=== PATIENT | male | born 1955 | race Hispanic/Latino ===

== ENCOUNTER 2019-01-09 10:50 | Inpatient (IN) | payer BC, OTHER ==
--- NOTE | 2019-01-09 11:06 | CT ---
Exam: CT brain PROVIDED CLINICAL HISTORY: Stroke alert, facial weakness COMPARISON: None FINDINGS: The ventricular system is normal in size and morphology. No evidence for intracranial hemorrhage or mass effect. The extracranial soft tissues and osseous structures demonstrate no evidence for an acute abnormality. Osseous excrescence arising from the left aspect of the sella and partially surrou nding the expected course of the left supraclinoid internal carotid artery, benign-appearing. IMPRESSION: No evidence for intracranial hemorrhage or mass effect. Findings discussed with the referring clinici an 11:04 AM 01/09/2019.
[2019-01-09 11:13] LABS: #Eosinphils 0.2 thou/uL (0.0-0.7); #Lymphocytes 2.6 thou/uL (1.20-3.40); #Monocytes 0.7 thou/uL (0.11-0.59); #Neutrophils 4.3 thou/uL (1.40-6.50); %Basophils 0.6 % (0.0-1.0); %Lymphocytes 33.1 % (21.0-51.0); %Neutrophils 55.3 % (42.0-75.0); Hemoglobin 14.8 g/dL (14.0-18.0); Mean Corpuscular HGB CONC 32.4 g/dL (32.0-36.0); Mean Corpuscular Hemoglobin 30.3 pg (27.0-31.0); Mean Corpuscular Volume 93.5 fL (78.0-98.0); Mean Platelet Volume 8.9 fL (7.4-10.4); Platelet Count 237 thou/uL (130-400); RBC Distribution Width 11.8 % (11.5-14.5); White Blood Cell (WBC) Count 7.7 thou/uL (4.8-10.8)
[2019-01-09 11:19] LABS: PTT 29.3 SEC (22.9-36.1); Prothrombin Time 12.6 SEC (12.0-14.7)
[2019-01-09 11:37] LABS: Bilirubin Negative (Negative); Blood, Urine Negative (Negative); Clarity Clear (Clear); Glucose, Urine (Dipstick) 70 mg/dL (Negative); Leukocyte Negative Leu/uL (Negative); Nitrite Negative (Negative); Protein, Urine (Dipstick) Negative (Neg-Trace); Urobilinogen Normal mg/dL (Less than 2)
[2019-01-09 11:42] LABS: ALT (SGPT) 22 U/L (8-55); AST (SGOT) 16 U/L (5-34); Albumin 4.3 g/dL (3.4-4.8); Alkaline Phosphatase 99 U/L (40-150); Anion Gap 14 mmol/L (10-20); BUN (Urea Nitrogen) 10 mg/dL (8.4-25.7); Bilirubin, Total 0.7 mg/dL (0.2-1.2); Calc. Creatinine Clearance 0 mL/min (70-130); Calcium 9.4 mg/dL (7.8-10.44); Carbon Dioxide 23 mmol/L (23-31); Chloride 105 mmol/L (98-107); Estimated GFR-MDRD Greater than 90; Globulin 2.8 g/dL (2.4-3.5); Glucose 211 mg/dL (80-115); Potassium 4.1 mmol/L (3.5-5.1); Protein, Total 7.1 g/dL (5.8-8.1); Sodium 138 mmol/L (136-145)
--- NOTE | 2019-01-09 11:43 | CT ---
EXAM: CT angiogram brain with IV contrast and three-dimensional reconstructions CT angiogram great vessels neck contrast and 3-D reconstructions PROVIDED CLINICAL HISTORY: History COMPARISON: None FINDINGS: There is a normal three-vessel configuration of the great vessels at the arch. The common carotid, internal carotid, clavian and vertebral arteries demonstrate no evidence for sign ificant stenosis. The left vertebral artery is dominant. The right vertebral artery terminates in PICA. There is no evidence for focal vessel stenosis or branch occlusion involving the intracranial circula tion. There is circumferential calcification about the supraclinoid left internal carotid artery and carotid terminus as well as the proximal aspects of the left A1 segment. These vessels appear nor jay jay opacified. There is a 2-3 mm saccular focus of contrast emanating from the left posterolateral aspect of the carotid terminus that may reflect a small saccular aneurysm or atheromat ous ulcer. IMPRESSION: 1. No significant stenosis involving great vessels neck. 2. No significant stenosis/occlusion involving intracranial circulation. 3. Atheromatous ulcer versus small saccular aneurysm involving left carotid terminus as above. Findings discussed with the referring clinician 11:39 AM 01/09/2019.
[2019-01-09] MEDS ORDERED: Aspirin Chewable 81 MG TAB ONE (12:49)
[2019-01-09] MEDS ORDERED: ISOVUE-370 76%-LOCM 1 ML ONE (13:36)
[2019-01-09 14:50] LABS: Troponin I Less than 0.010 ng/mL (< 0.028)
--- NOTE | 2019-01-09 16:15 | ULT ---
VENOUS DOPPLER ULTRASOUND OF THE RIGHT LOWER EXTREMITY: 01/09/19 HISTORY: Right lower extremity pain. TECHNIQUE: Brown scale, with color flow and spectral Doppler imaging of the deep venous system of the right lower extremity is performed. FINDINGS: There is good flow, compression, and augmentation noted in the right common femoral, femoral, deep fe moral, popliteal, posterior tibial, peroneal and greater saphenous veins. IMPRESSION: No evidence of DVT in the right lower extremity. POS: [facility]
--- NOTE | 2019-01-09 16:17 | ULT ---
CAROTID DUPLEX ULTRASOUND: 01/09/19 INDICATION: History of stroke. FINDINGS: There is mild intimal thickening of the common carotid arteries and internal carotid arteries bilater ally. Peak systolic velocity within the right ICA was 88.3 cm/s and the left ICA 93.7 cm/s. Peak systolic velocity within the right CCA was 108.2 cm/s and the left CCA 107.0 cm/s. The right IC/CC ratio is 0.82 and left is 0.88. Antegrade flow is seen in both vertebral arteries. IMPRESSION: No hemodynamically significant stenosis demonstrated. POS: [facility]
[2019-01-09 16:55] VITALS: BMI 27.2
[2019-01-09] MEDS ORDERED: Dextrose 50% Abboject 50 ML SYRINGE IVP PRN (17:38)
[2019-01-09] MEDS ORDERED: Dextrose 5% in Water 1,000 ML IV PRN (17:38)
[2019-01-09] MEDS: Insulin Regular 300 UNITS/3 ML VIAL SC PRN ×2 (18:48→20:58)
[2019-01-09] MEDS: Atorvastatin Calcium 20 MG TAB PO SCH (20:58)
--- NOTE | 2019-01-09 21:18 | HP ---
CHIEF COMPLAINT: Slurred speech and facial droop. HISTORY OF PRESENT ILLNESS: Mr. Macias is a 63-year-old male with past medical history of diabetes, hypertension, was noted to have speech problems while going to the office this morning. He tried to talk to his brother on the phone and he could not speak well. Words could not come out. Later, he called his also and he could not talk, so the patient was brought to the emergency room with sudden onset of dysarthria. By the time, he came to the ER, the patient's symptoms got resolved in few minutes and he was able to speak clearly. The nurse also noticed some facial droop when he came to the emergency room. In the ER, the patient was evaluated, was found to have slurred speech, and later some slight right-sided facial droop, which improved. Later on after few more minutes, the patient developed symptoms again. He had a problem speaking again. He could not speak. He could not get the words out, so the ER physician in this setting gave him tPA with possible stroke and he did have CT scan of the brain, which was negative for any bleeding or infarct. CTA angio of the neck and [place] was done as well. Currently, the patient is unable to speak. He is getting tPA. He did not have any chest pain. No nausea or vomiting. No shortness of breath. No headache. No dizziness. He did have problem with right leg, some pain, but no swelling. He was supposed to have a DVT study done on the right leg, which was still not done as an outpatient. PAST MEDICAL HISTORY: 1. Hypertension. 2. Diabetes mellitus. 3. Hyperlipidemia. PAST SURGICAL HISTORY: Nothing significant. CURRENT MEDICATIONS: The patient is on: 1. Metformin 500 mg b.i.d. 2. Amlodipine 10 mg daily. 3. Glimepiride 4 mg daily. FAMILY HISTORY AND SOCIAL HISTORY: The patient lives with family. No history of smoking. REVIEW OF SYSTEMS: CARDIOVASCULAR: No chest pain or shortness of breath. RESPIRATORY: No fever or cough. GASTROINTESTINAL: No nausea or vomiting. No abdominal pain. CENTRAL NERVOUS SYSTEM: The patient has slurred speech, but no other weaknesses. PHYSICAL EXAMINATION: GENERAL: The patient is alert, awake, oriented x3. VITAL SIGNS: Temperature 98, pulse 60, respirations 20, blood pressure 160/60. HEENT: Head is normocephalic, atraumatic. Pupils are equal and reactive. Nasopharynx is pale and dry. Hard and soft palate. No lesions. SKIN: Turgor decreased. NECK: Supple. No JVD. LUNGS: Bilateral air entry with no rales and no rhonchi. HEART: S1 and S2. Regular. ABDOMEN: Soft. No distention. No tenderness. Normal bowel sounds present. RECTAL: Deferred. CENTRAL NERVOUS SYSTEM: The patient is alert, awake, oriented x3. Motor system, there is expressive aphasia. Otherwise, power is 5/5 in all extremities. Deep tendon reflex 2+ bilaterally. Plantars downgoing. Sensory intact. LABORATORY DATA: CBC shows WBC 7.7, hemoglobin 14, hematocrit 45, platelets 237. Metabolic panel; sodium 138, potassium 4, chloride 104, CO2 of 23, blood urea nitrogen 10, creatinine 0.9, glucose 211. Prothrombin time 12, INR 1. Urinalysis negative. CT of the brain; no evidence of bleeding, no infarct. CTA of the [place] and neck showed no significant stenosis involving the great vessels of the neck, there is atheromatous ulcer versus small saccular aneurysm involving left carotid terminus. EKG showed normal sinus rhythm, no acute ST-T changes seen. ASSESSMENT: 1. Acute cerebrovascular accident with expressive aphasia. 2. Diabetes mellitus. 3. Hypertension. 4. Possible atheromatous ulcer versus saccular aneurysm in carotid sinus on the left. 5. Hyperlipidemia. PLAN: 1. Vital signs q.4 hours. 2. Activity as tolerated. 3. Allergies, NKDA. 4. Hep-Lock. 5. Continue home medications. 6. Accu-Chek a.c. and at bedtime, sliding scale mild with regular insulin. 7. Neurology consult. 8. We will obtain carotid Dopplers today. 9. Echocardiogram. 10. DVT study. Job ID: [id number]
[2019-01-10 06:03] LABS: Cardiac Risk 2.7 (Less than 4.5)
[2019-01-10] MEDS ORDERED: metFORMIN 500 MG TAB PO SCH (08:00)
[2019-01-10] MEDS: Amlodipine 10 MG TAB PO SCH (09:17)
[2019-01-10] MEDS: Glimepiride 4 MG TAB PO SCH (09:17)
[2019-01-10] MEDS ORDERED: Aspirin 81 mg Enteric Coated Tablet PO SCH (10:45)
--- NOTE | 2019-01-10 11:06 | CON ---
DATE OF CONSULTATION: 01/10/2019 SERVICE: Pulmonary Medicine. REASON FOR CONSULTATION: ICU patient. HISTORY OF PRESENT ILLNESS: The patient is a 63-year-old male with past medical history significant for essentially nothing. He is in good health. That being said, he had an abrupt onset of difficulty getting words out. Interestingly, he had no difficulties in singing along with a song. That being said, after making an attempt to have multiple conversations with different people, he ultimately came to the emergency department. He was given tPA. His NIH abruptly improved. He was tucked in the ICU for monitoring. This morning, he has no neurologic deficits. Denies any current fevers, chills, nausea, or vomiting. There were no precipitating events that surround these changes. The patient is doing fine from respiratory standpoint. PAST MEDICAL HISTORY: 1. History of CVA. 2. Type 2 diabetes mellitus. 3. Hypertension. 4. Dyslipidemia. PAST SURGICAL HISTORY: None. FAMILY HISTORY: Noncontributory. SOCIAL HISTORY: Negative for significant alcohol, tobacco, or illicit drug use. He has no exposure to chemicals, dust, asbestos, or tuberculosis. ALLERGIES: NO KNOWN DRUG ALLERGIES. MEDICATIONS: List of his inpatient medications was reviewed. No specific updates were made at this time. REVIEW OF SYSTEMS: General, head, ears, eyes, nose, throat, cardiovascular, respiratory, GI, , musculoskeletal, neurologic, and skin are negative except as mentioned in the HPI. PHYSICAL EXAMINATION: VITAL SIGNS: Afebrile, pulse 66, blood pressure 127/77, respirations 14, saturation 94% on room air. GENERAL: The patient is awake and alert, in no apparent distress. LUNGS: Excellent air entry with no prolonged expiratory phase, wheezing, crackles, or rhonchi. HEART: Normal rate and regular. ABDOMEN: Soft, nontender, nondistended. Bowel sounds are positive. MUSCULOSKELETAL: No cyanosis or clubbing. No pitting in the bilateral lower extremities. NEUROLOGIC: Grossly nonfocal. He demonstrates good strength throughout. He has no difficulties with his speech. Sensation is normal everywhere except for the right lower extremity where he has had a recent history of sciatic nerve discomfort. LABORATORY DATA: CBC, INR, comprehensive metabolic profile are all unremarkable. Troponin is negative x2. Hemoglobin A1c 8.0. IMAGING STUDIES: 1. CT of the brain demonstrates no acute intracranial abnormality. 2. CT [place] with contrast demonstrates no significant stenosis involving the big vessels. There is an atheromatous ulcer versus saccular aneurysm involving the left carotid terminus. 3. Ultrasound of the bilateral lower extremities demonstrates no acute abnormality. 4. Ultrasound of the neck demonstrates no flow-limiting lesions. ASSESSMENT: 1. Acute cerebrovascular accident, status post tPA with resolution of neurologic dysfunction. 2. Hypertension. 3. Type 2 diabetes mellitus. 4. Saccular plaque versus aneurysm of the carotid artery. DISCUSSION AND PLAN: Agree with Neurology consultation. The patient may require intervention there. He had an echocardiogram this morning which is currently pending. At this point, he is stable for transition out of the ICU to the medical unit. We will continue anti-platelet therapy. He has no further requirements for Inpatient Pulmonary Critical Care opinion, so when he leaves the ICU, I will sign off. Please call with additional questions or concerns through time. 70 minutes have been devoted to this patient in various activities. I personally reviewed all imaging studies and laboratory data noted within this document. For fifty percent of this time, I was interacting with the patient at the bedside or coordinating care with the care team. For the remainder of the time I was immediately available to the patient in the hospital unit. Job ID: [id number] MTDD
[2019-01-10] MEDS: Insulin Regular 300 UNITS/3 ML VIAL SC PRN (12:27)
[2019-01-10] MEDS: Atorvastatin Calcium 20 MG TAB PO SCH (21:11)
--- NOTE | 2019-01-10 22:11 | CON ---
DATE OF CONSULTATION: 01/10/2019 CHIEF COMPLAINT: Possible transient ischemic attack. HISTORY OF PRESENT ILLNESS: The patient is a 63-year-old man, who was driving to work. He could not talk, but he could sing briefly, but then he could not talk again. His symptoms fluctuated. He was talking to his [id number] and then he talked to his . He did not have any weakness of his extremities. He never had similar symptoms. Upon arrival to the ER, he was diagnosed with a stroke and received IV tPA. Subsequent to IV tPA, he no longer had any of these symptoms. Since he has no sensory abnormality overall, it seems like he is back to baseline at this time. PREVIOUS MEDICAL HISTORY: Positive for hypertension, diabetes, and hyperlipidemia,. PREVIOUS SURGICAL HISTORY: Had bilateral rotator cuff repair, surgery of his knees, bilateral deep tendon repairs in his ankle. He reported these were all sports related, he plays [employer], he was a catcher. SOCIAL HISTORY: He is a nonsmoker. Does not drink alcohol. 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 FAMILY HISTORY: Mother from CV[place]. Father from [place]. Everyone in his family has diabetes. His sister also had a CVA. He has 2 children, both are healthy. ALLERGIES: NO KNOWN DRUG ALLERGIES. REVIEW OF SYSTEMS: GENERAL: Normal. CARDIOVASCULAR: Negative for chest pain or palpitation. PULMONARY: Negative for any cough or shortness of breath. GI: Negative for any nausea, vomiting, or diarrhea. HEMATOLOGIC: Negative for bleeding, diathesis or anemia. NEUROLOGICAL: Positive for transient aphasia, which resolved. LABORATORY DATA: His lab workup; white count 7.7, hemoglobin 14.8, hematocrit 45.8, platelets 237. Chemistry; sodium 138, potassium 4.1, chloride 105, bicarb 23, BUN 10, creatinine 0.8, glucose 211. His lipid profile was within normal limits. He had CT angiography of his [place], which showed no evidence of any stenosis in the great vessels of the neck or intracranial circulation. He does have atheromatous ulcer versus small saccular aneurysm in the left carotid terminus and MRI is pending. CT angiography showed no evidence of any acute stroke or internal hemorrhage. PHYSICAL EXAMINATION: VITAL SIGNS: Temperature 98, pulse 68, blood pressure 139/75, O2 saturation is 95%. GENERAL APPEARANCE: Well-built, well-nourished man, who appears comfortable. CHEST: Clear vesicular breathing. CARDIOVASCULAR: S1 and S2 heard. No murmurs. ABDOMEN: Soft. No organomegaly noted. NEUROLOGICAL: Higher intellectual functions; normal orientation to time, place, and person and appropriate conversation. Cranial nerves, normal extraocular movements. Pupils 2 mm, reactive to light bilaterally and normal sensation of face bilaterally. Tongue midline. No atrophy noted. Normal elevation of palate. Normal hearing to finger rub bilaterally. Motor exam; bulk normal. Tone normal. Strength 5/5 in upper and lower extremities in iliopsoas, hamstrings, quadriceps, ankle dorsiflexion, plantar flexion, deltoid, biceps, triceps, wrist extension and flexion, finger extension and flexion bilaterally. Sensory normal touch bilaterally and cerebellar normal [id number]. IMPRESSION: The patient is a 63-year-old man with risk factors of hypertension, diabetes, hyperlipidemia. He had a sudden onset of aphasia while driving today without any limb involvement. He has pending MRI of the brain at this time. However, his CT angiography showed ulceration or saccular aneurysm of the carotid. At this time, his neurological examination is normal. RECOMMENDATIONS: Please consult Vascular Surgery to see if this needs a stent. I will review his MRI and echocardiogram. Continue aspirin with statin for now for stroke prophylaxis. Job ID: [id number]
[2019-01-11] MEDS: Glimepiride 4 MG TAB PO SCH (08:18)
[2019-01-11] MEDS: Amlodipine 10 MG TAB PO SCH (08:19)
[2019-01-11] MEDS ORDERED: Aspirin 81 mg Enteric Coated Tablet PO SCH (09:00)
--- NOTE | 2019-01-11 11:15 | CON ---
DATE OF CONSULTATION: HISTORY OF PRESENT ILLNESS: This is a pleasant 63-year-old gentleman in good health with a diagnosis of diabetes mellitus and hypertension, who had an episode of aphasia that prompted visit to the ER, ultimately receiving tPA with resolution of his symptoms. Workup has included a normal cardiac echo, normal carotid ultrasound, CT angiogram showing some calcification of the distal intracranial ICA on the left with perhaps a small ulcerated plaque or 2 mm aneurysm yet clearly defined. MRI is pending. The patient was taking 81 mg aspirin a day at home prior to this. He does have a family history of stroke. REVIEW OF SYSTEMS: The patient has had some discomfort in his right leg over the lateral aspect below the knee, worsened when he was trying to play tennis and associated with some lower back pain. This has been unrelated to his current symptom. PHYSICAL EXAMINATION: GENERAL: On examination, he is alert and cooperative gentleman, in no distress. NECK: No carotid bruits. LUNGS: Clear to auscultation. CARDIAC: Regular rate and rhythm. No murmurs. EXTREMITIES: He has no peripheral edema with palpable radial and dorsalis pedis pulses bilaterally. NEUROLOGIC: Motor strength equal in all extremities with no residual aphasia. ASSESSMENT AND PLAN: At this time, the patient has intracranial disease, first episode on the single antiplatelet agent. Assuming the MRI shows nothing additional, I would suggest dual antiplatelet therapy with aspirin and Plavix and follow up with Dr. Subhash German as to whether further intervention would be appropriate at this stage, including any further diagnostic angiography. Job ID: [id number]
--- NOTE | 2019-01-11 11:28 | MRI ---
MRI OF THE BRAIN WITHOUT AND WITH CONTRAST: COMPARISON: None. HISTORY: Patient was unable to speak on Saturday01/09/2019. This has resolved. Evaluate for stroke. TECHNIQUE: Multiplanar, multisequence MRI images were obtained of the brain without and with IV contrast. FINDINGS: There are scattered foci of high T2/FLAIR signal in the subcortical and periventricular white matter, likely secondary to small-vessel ischemic disease. No restricted diffusion is seen to suggest an ac [place] infarction. No abnormal enhancement is seen. There is no evidence of hydrocephalus, intracranial hemorrhage, or extraaxial fluid collection. The expected flow voids are present. The corpus callosum, pituitary, and craniocervical junction are unr emarkable. The calvarium and overlying soft tissues are unremarkable. The visualized paranasal sinuses and mast oid air cells are well aerated. IMPRESSION: 1. No evidence of acute intracranial abnormality. 2. Small-vessel ischemic disease. POS: [facility]
[2019-01-11 11:51] VITALS: BP 146/75; TEMP 97.5
[2019-01-11] MEDS: Insulin Regular 300 UNITS/3 ML VIAL SC PRN (12:15)
--- NOTE | 2019-01-11 12:18 | PRG ---
DATE OF SERVICE: 01/11/2019 CHIEF COMPLAINT: TIA. INTERVAL HISTORY: The patient has been stable. He received tPA for aphasia and presumed left MCA CVA. He has been improving steadily. At this time, his current workup shows left ICA abnormality, which needs to be evaluated by Vascular Surgery. The patient is stable. LABORATORY DATA: No new lab today and glucose is still elevated at 229. PHYSICAL EXAMINATION: VITAL SIGNS: Blood pressure 146/75, temperature 97.5, pulse is 62, respiratory rate 16. GENERAL APPEARANCE: Well-built, well-nourished man, who is comfortable and extraocular movements are normal. NEUROLOGIC: Motor examination; bulk normal, tone normal. Strength 5/5 bilaterally in both upper and lower extremities. Gait not tested. Coordination is normal. IMPRESSION: The patient is a 63-year-old man with diabetes, who presented to the emergency room with aphasia. Initially, he had aphasia and mild weakness of the left arm and his symptoms have resolved. He received IV tPA as well in the process. At this time, most of his workup is negative, except for ulceration or saccular aneurysm of the carotid artery, mainly on the left carotid terminus. His MRI of the brain is negative for an acute infarct and his echocardiogram is also within normal limits. Clinical examination is stable and his exam today is normal. He is awaiting on Vascular Surgery consultation. If there is no interventional procedure planned, please discharge him home on aspirin with statin, and follow up with Dr. Goss as outpatient. Also follow recommendations from Dr. Yen, Vascular Surgery. Please call me if you have any further questions. Job ID: [id number]
--- NOTE | 2019-01-12 14:55 | DIS ---
DATE OF ADMISSION: 01/09/2019 DATE OF DISCHARGE: 01/11/2019 ADMITTING DIAGNOSES: 1. Slurred speech and aphasia, possible cerebrovascular accident versus transient ischemic attack. 2. Diabetes mellitus. 3. Hypertension. 4. Hyperlipidemia. FINAL DIAGNOSES: 1. Acute cerebrovascular accident with expressive aphasia, status post tPA, improved. 2. Possible atheromatous ulcer versus saccular aneurysm in carotid sinus on the left. 3. Diabetes mellitus. 4. Hypertension. 5. Hyperlipidemia. BRIEF SUMMARY OF HOSPITAL COURSE: Mr. Gilberto Cowart is a 63-year-old male admitted because of sudden onset of expressive aphasia. The patient could not bring any words, could not speak and able to understand. No other extremity weakness. The patient initially improved and developed symptoms again. He was given tPA in the ER. After a few hours later, the patient's speech returned almost to the normal. He was admitted to rule out CVA. Carotid Doppler study was done and it did not show any hemodynamically significant stenosis. MRI of the brain was done, it was unremarkable. Echocardiogram showed normal LV function with ejection fraction of 65%. The patient was seen by Dr. Hsieh in the ICU, felt he has acute CVA which is resolved. He is also seen by neurologist, Dr. Mccain, she felt the patient possibly has TIA which resolved, suggested vascular surgery consult regarding that saccular aneurysm versus atheromatous ulcer in the carotid sinus. The patient was seen by Dr. Yen, he felt the patient has possible 2 mm size atheromatous ulcer in the sinus, suggested no intervention by Vascular Surgery. He may follow up with Neurosurgery regarding this as an outpatient. In view of improvement of the patient's symptoms, the patient is being discharged. At the time of discharge, he was stable. His vital signs stable. Lungs, clear to auscultation. Abdomen soft, nontender. Bowel sounds present. DISCHARGE MEDICATIONS: 1. Vitamin D daily. 2. Glimepiride 4 mg daily. 3. Metformin 500 b.i.d. 4. Amlodipine 10 mg daily. 5. Aspirin 81 mg two tablets daily. 6. Atorvastatin 20 mg daily. 7. Plavix 75 mg daily. FOLLOWUP: The patient will come for followup in 2 weeks. Job ID: [id number]
== END 2019-01-11 16:47 | disposition home or self-care (01) | DRG 93 ==
LOC: ERS 10:50 → CCU 16:13 → 2SE 01-10 10:34
PROVIDERS: ADMIT Internal Medicine; ATTEND Internal Medicine
DX: I67.1 Cerebral aneurysm, nonruptured (principal); I10 Essential (primary) hypertension; E11.9 Type 2 diabetes mellitus without complications; R29.810 Facial weakness; R47.81 Slurred speech; E78.5 Hyperlipidemia, unspecified; R29.706 NIHSS score 6; Z79.84 Long term (current) use of oral hypoglycemic drugs; Z79.899 Other long term (current) drug therapy
CPT/HCPCS: 36416; 70450; 70496; 70498; 70553; 80053; 80061; 81003; 83036; 84484; 85025; 85610; 85730; 93005; 93306; 93880; 96361; 96365; 96376; J1815; J2997; Q9966

== ENCOUNTER 2020-01-06 15:15 | Outpatient (CLI) | payer OTHER ==
--- NOTE | 2020-01-06 16:25 | ULT ---
BILATERAL CAROTID DUPLEX ULTRASOUND: HISTORY: Cerebral atherosclerosis TECHNIQUE: Grayscale, color-flow and spectral Doppler ultrasound imaging of the extracranial carotid artery syst ems was performed bilaterally. FINDINGS: No significant intimal wall thickening or plaque formation is seen on either side. The peak systolic velocity in the right ICA measures 124 cm/s with an end-diastolic velocity of 18 cm /s and a systolic ratio of 1.3. The peak systolic velocity in the left ICA measures 92 cm/s with an end-diastolic velocity of 23 cm/s and a systolic ratio of 0.96. Flow in both vertebral arteries remains antegrade. IMPRESSION: No evidence of hemodynamically significant stenosis.
== END 2020-01-06 15:16 | disposition home or self-care (01) ==
LOC: SCSULT 15:15
PROVIDERS: ATTEND Neurological Surgery
DX: I67.2 Cerebral atherosclerosis (principal)
CPT/HCPCS: 93880

== ENCOUNTER 2021-10-05 13:42 | Outpatient (CLI) | payer MEDICARE | END 2021-10-05 13:43 | disposition home or self-care (01) | LOC: SCSMRI 13:42 | PROVIDERS: ATTEND Orthopaedic Surgery | DX: M19.011 Primary osteoarthritis, right shoulder (principal) ==

== ENCOUNTER 2021-12-20 14:29 | Outpatient (CLI) | payer MEDICARE, OTHER | END 2021-12-20 14:30 | disposition home or self-care (01) | LOC: ULT 14:29 | PROVIDERS: ATTEND Neurological Surgery | DX: I66.02 Occlusion and stenosis of left middle cerebral artery (principal) | CPT/HCPCS: 93880 ==